=== PATIENT | female | born 1995 | race African-American/Black ===

== ENCOUNTER 2016-11-25 17:37 | Emergency (ER) | payer OTHER ==
[~2016-11-25] VITALS: Ht 167.6 cm; Wt 68.0 kg
[~2016-11-25 17:37] MED LIST: LANSO30 PO; Z.0.NO CURRENT MEDS
[2016-11-25 17:39] VITALS: BP 126/79; PULSE 80; RESP 12; TEMP 98.8; O2SAT 99
[2016-11-25] MEDS ORDERED: ALUMINUM/MAGNESIUM/SIMETH 30 ML CUP PO ONE (20:00)
[2016-11-25] MEDS ORDERED: LIDOCAINE VISCOUS 2% SOLN 15 ML UDC SWISH-SWAL ONE (20:00)
--- NOTE | 2016-11-25 20:13 | PD ---
HPI Chief Complaint: Cardiac Complaint Time Seen by Provider: 19:52 Travel History International Travel<30 days: No Contact w/Intl Traveler<30days: No Traveled to known affect area: No History of Present Illness HPI Patient is a 21-year-old female with a history of reflux presents to emergency department with chest pain epigastric in nature since last night. Patient states that she did have GERD flare while this was happening but the pain feels different. She states she felt nauseous and some mild shortness of breath. On arrival she states the pain is very mild. She has not tried anything prior to presentation. No history of heart disease in herself nor early in her family. No smoking on a blood pressure high cholesterol. Patient states she presented the emergency department before for similar circumstances and they could not tell her what was wrong. Patient states that she was on control pills but has not taken them in over 2 months. Denies any abdominal pain vaginal bleeding headache syncope. PFSH Past Medical History ?: Unknown LMP: 11/2016 Social History Alcohol Use: No Tobacco Use: No Substance Use: No Allergies-Medications (Allergen,Severity, Reaction): Coded Allergies: No Known Allergies (Unverified , 11/25/16) Reported Meds & Prescriptions Reported Meds & Active Scripts Active No Active Prescriptions or Reported Medications Review of Systems Except as stated in HPI: all other systems reviewed are Neg Physical Exam Narrative GENERAL: Well-developed well-nourished no apparent distress SKIN: Warm and dry. HEAD: Atraumatic. Normocephalic. EYES: Pupils equal and round. No scleral icterus. No injection or drainage. ENT: No nasal bleeding or discharge. Mucous membranes pink and moist. NECK: Trachea midline. No JVD. CARDIOVASCULAR: Regular rate and rhythm. No murmur appreciated. 2+ bilaterally equal pulses in all 4 extremities. RESPIRATORY: No accessory muscle use. Clear to auscultation. Breath sounds equal bilaterally. GASTROINTESTINAL: Abdomen soft, non-tender, nondistended. Hepatic and splenic margins not palpable. MUSCULOSKELETAL: No obvious deformities. No clubbing. No cyanosis. No edema. NEUROLOGICAL: Awake and alert. No obvious cranial nerve deficits. Motor grossly within normal limits. Normal speech. PSYCHIATRIC: Appropriate mood and affect; insight and judgment normal. Data Data Last Documented VS Vital Signs Date Time Temp Pulse Resp B/P Pulse Ox O2 Delivery O2 Flow Rate FiO2 11/25/16 21:30 86 18 132/73 100 11/25/16 20:22 Room Air 11/25/16 17:39 98.8 Orders Electrocardiogram (11/25/16 ) Chest, Ap & Lat (11/25/16 ) Al-Mag Hy-Si 40-40-4 Mg/Ml Liq (Mag-Al P (11/25/16 20:00) Lidocaine 2% Viscous (Xylocaine 2% Visco (11/25/16 20:00) [facility] Medical Decision Making Medical Screen Exam Complete: Yes Emergency Medical Condition: Yes Interpretation(s) EKG shows normal sinus rhythm with normal axis and normal R-wave progression. No concerning ST T changes, intervals within normal limits. This normal EKG. This EKG was performed 2.5 hours post admission the emergency department. Differential Diagnosis GERD, ACS unlikely, PE unlikely, AMI unlikely, esophageal spasm. Narrative Course Patient was roomed in the emergency department, she appears well in no apparent distress. EKG is reassuring. She is excludable by perk and isabella's criteria. Her symptoms are fairly atypical and she has no risk factors for ACS, there is no indication further workup in the emergency department. She was given a GI cocktail and felt completely relieved with this. Chest x-ray negative. Discussed need follow-up with a primary care physician and return to ED criteria. She is given the names of several primary care providers in the area. Diagnosis Primary Impression: Atypical chest pain Referrals: Shyam Carson MD,Nadir Francis,Augie Mckinney,Vivi WELCH Additional Instructions: I've given you several primary care provider's above to try and follow up with. Scripts No Active Prescriptions or Reported Meds Disposition: 01 DISCHARGE HOME Condition: Stable Papi Aburto MD Nov 25, 2016 20:13
--- NOTE | 2016-11-25 20:25 | RADRPT ---
EXAM DATE/TIME: 11/25/2016 20:08 [facility] COMPARISON: No previous studies available for comparison. INDICATIONS : Chest pain since yesterday. MEDICAL HISTORY : None. SURGICAL HISTORY : None. ENCOUNTER: Initial ACUITY: 2 days PAIN SCORE: 6/10 LOCATION: Bilateral middle chest. FINDINGS: AP and lateral views of the chest demonstrate the lungs to be symmetrically aerated without evidence of mass, infiltrate or effusion. The cardiomediastinal contours are unremarkable. Osseous structure s are intact. CONCLUSION: No acute disease. Al Pedraza MD on November 25, 2016 at 20:24 Board Certified Radiologist. This report was verified electronically.
[2016-11-25 21:30] VITALS: BP 132/73
--- NOTE | 2016-11-26 10:48 | EKG ---
Date Performed: 11/25/2016 Time Performed: 20:16:55 PTAGE: 21 years EKG: Sinus rhythm NORMAL ECG PREVIOUS TRACING : 03/13/2013 19.53 Compared to prior tracing no significant change DOCTOR: Vitaliy Cee Interpretating Date/Time 11/26/2016 10:46:55
== END 2016-11-25 21:32 | disposition home or self-care (01) ==
LOC: NEPC 17:37
DX: R07.89 Other chest pain (principal); K21.9 Gastro-esophageal reflux disease without esophagitis
CPT/HCPCS: 71020; 93005